=== PATIENT | male | born 1965 | race Caucasian/White ===

== ENCOUNTER 2016-06-14 19:51 | Emergency (ER) | payer BC ==
[2016-06-14 20:07] VITALS: TEMP 97.2
[2016-06-14] MEDS ORDERED: HYDROmorphone HCL INJ 2 MG/ML VIAL IV ONE (20:10)
[2016-06-14] MEDS ORDERED: ONDANSETRON INJ 4 MG/2 ML VIAL IV ONE (20:10)
--- NOTE | 2016-06-14 20:13 | ED.PDOC ---
History of Present Illness - General Chief Complaint: Head Injury Stated Complaint: head injury Time Seen by Provider: 06/14/16 19:54 Source: patient, RN notes reviewed, Vital Signs reviewed, family Exam Limitations: no limitations - History of Present Illness Initial Comments: Patient reports that prior to arrival he stood up from a bent over position and struck the back of his head on a metal bar. +LOC of unknown duration. + CAMEJO, N/V &"just don't feel right". Feels like he can't focus. Occurred: just prior to arrival Severity: severe Head Injury Location: occipital Method of Injury: direct blow Other Pain/Injuries: c/o L eye pain/pressure Loss of Consciousness: unsure Associated Symptoms: headaches, nausea/vomiting Allergies/Adverse Reactions: Allergies Cyclobenzaprine [From Flexeril] Allergy (Verified 11/02/13 21:12) Iodine Allergy (Verified 11/02/13 21:12) Home Medications: Ambulatory Orders HYDROcodone 7.5MG/APAP 325MG [[place] 7.5/325] 1 tab PO Q4HR PRN #20 tab 06/14/16 Levothyroxine Sodium [Synthroid] 25 mcg PO 06/14/16 Ondansetron [Zofran Odt] 4 mg PO Q4HR PRN #20 tab 06/14/16 Review of Systems - Review of Systems Constitutional: States: no symptoms reported. Denies: diaphoresis, malaise, weakness EENTM: States: see HPI, ear pain - L eye Respiratory: States: no symptoms reported Cardiology: States: no symptoms reported Gastrointestinal/Abdominal: States: nausea, vomiting Musculoskeletal: States: see HPI. Denies: neck pain Skin: States: no symptoms reported Neurological: States: headache. Denies: numbness, paresthesia, pre-existing deficit, seizure, tingling, tremors, weakness Endocrine: States: no symptoms reported Hematologic/Lymphatic: States: no symptoms reported Past Medical History (General) - Patient Medical History Hx Thyroid Disease: Yes Surgical History: cholecystectomy - Vaccination History Hx Tetanus, Diphtheria Vaccination: No Hx Influenza Vaccination: Yes - Social History Hx Alcohol Use: Yes - Triage Comment ED Triage Comment: states pain is sharp to back of head, radiates to back of eye Family Medical History - Family History Mother Living Status: Still Living Hx Family Congestive Heart Failure: Yes Hx Family Hypertension: Yes Physical Exam - Physical Exam General Appearance: Alert, Anxious, Obvious distress, Well Developed, Well Groomed, Well Hydrated, Well Nourished Head Injury: swelling, tenderness - On back of head Eye Exam: bilateral normal ENT Exam: no evidence of ENT injury, no dental injury Neck Exam: non-tender, full range of motion, normal alignment, normal inspection 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, 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 Discussed concussions, need for no electronics for a week, no driving and follow up with PCP in 1 week for recheck and work clearance. ER warnings given - EKG/XRAY/CT CT Ordered: Yes - No acute abnormality Departure - Departure Clinical Impression: Concussion with loss of consciousness <= 30 min, Contusion of head Time of Disposition: 21:14 Disposition: Discharge to Home or Self Care Condition: Good Departure Forms: ED Discharge - Pt. Copy, Patient Portal Self Enrollment, Work Release Form Instructions: Concussion, DI for Postconcussion Syndrome Diet: resume usual diet Activity: increase activity as tolerated, no exercise - for at least 1 week Referrals: Scott Stringer III, MD [Primary Care Provider] - 1 Week Prescriptions: HYDROcodone 7.5MG/APAP 325MG [[place] 7.5/325] 1 tab PO Q4HR PRN #20 tab PRN Reason: Pain -- Moderate To Severe Ondansetron [Zofran Odt] 4 mg PO Q4HR PRN #20 tab PRN Reason: Nausea/Vomiting Home Medications: Ambulatory Orders HYDROcodone 7.5MG/APAP 325MG [[place] 7.5/325] 1 tab PO Q4HR PRN #20 tab 06/14/16 Levothyroxine Sodium [Synthroid] 25 mcg PO 06/14/16 Ondansetron [Zofran Odt] 4 mg PO Q4HR PRN #20 tab 06/14/16
--- NOTE | 2016-06-14 20:50 | CT ---
PROCEDURE: Head CLINICAL HISTORY: 50 years Male CAMEJO, N/V after hitting back of head, +LOC COMPARISON: None. TECHNIQUE: Contiguous axial images were obtained through the head without IV contrast. FINDINGS: The ventricles and sulci appear unremarkable.No abnormal areas of decreased density are identified.No acute hemorrhage.No mass lesions.Small mucous retention cyst within the left maxillary sinus.No depressed calvarial fractures. IMPRESSION: No acute intracranial abnormality is identified. Electronically signed by: Siddharth Montoya MD 06/14/2016 8:49 PM [employer]
[2016-06-14] MEDS ORDERED: HYDROCOD/APAP 7.5/325 (ER DISP) #3 TAB PO ONE (21:16)
[2016-06-14 21:35] VITALS: BP 120/75; O2SAT 97
== END 2016-06-14 21:32 | disposition home or self-care (01) ==
LOC: ER 19:51
DX: S06.0X1A Concussion with loss of consciousness of 30 minutes or less, initial encounter (principal); E07.9 Disorder of thyroid, unspecified; Z88.8 Allergy status to other drugs, medicaments and biological substances; W22.09XA Striking against other stationary object, initial encounter
CPT/HCPCS: 70450; J1170; J2405

== ENCOUNTER → 2017-06-11 | Outpatient (CLI) | payer BC | LOC: GMAH 10:55 | PROVIDERS: ATTEND Family Medicine | DX: Z00.01 Encounter for general adult medical examination with abnormal findings (principal); Z12.5 Encounter for screening for malignant neoplasm of prostate; E03.9 Hypothyroidism, unspecified ==

== ENCOUNTER → 2019-05-18 | Outpatient (CLI) | payer SELFPAY | LOC: GMA MATASK 10:41 | PROVIDERS: ATTEND Family Medicine | DX: E03.9 Hypothyroidism, unspecified (principal) ==

== ENCOUNTER 2019-07-10 | Observation (INO) | payer SELFPAY | END 2019-07-11 13:30 | disposition short-term general hospital (02) | PROVIDERS: ADMIT Nurse Practitioner Family | DX: R07.89 Other chest pain (principal); E03.9 Hypothyroidism, unspecified; R00.1 Bradycardia, unspecified; R06.00 Dyspnea, unspecified; R11.0 Nausea; Z79.899 Other long term (current) drug therapy; Z88.8 Allergy status to other drugs, medicaments and biological substances; Z91.013 Allergy to seafood; Z90.49 Acquired absence of other specified parts of digestive tract; Z82.49 Family history of ischemic heart disease and other diseases of the circulatory system | CPT/HCPCS: 96361; 96374; 96375 ×2; 96376 ×2; 96372; J7611; J3010 ×2; J2270 ×3; J2405 ×2; J7040; J7030; J1650; 85379; 36415; 82550; 80048; 82553; 85025; 85730; 85610; 84484 ×3; 86140; 85651; 83880; 71045; 94760; 94640; 99285; 93306; 93005 ×3; G0378 ==

== ENCOUNTER → 2020-05-08 | Outpatient (CLI) | payer BC | LOC: GMA MATASK 15:38 | PROVIDERS: ATTEND Family Medicine | DX: Z00.00 Encounter for general adult medical examination without abnormal findings (principal); Z12.5 Encounter for screening for malignant neoplasm of prostate ==